=== PATIENT | male | born 1990 | race Caucasian/White ===

== ENCOUNTER 2024-07-03 17:40 | Emergency (ER) | payer MEDICAID, SELFPAY ==
[2024-07-03 17:46] VITALS: PULSE 72
--- NOTE | 2024-07-03 17:51 | MHC.CARE ---
Pt seen by court [facility] co-response, Sera Broderick in the community. Pt has court appointed guardian Wendy Zenge [phone]. Pt is DDS involved. He was living with his sister but there are concerns about pt not being cared for. Pt is nonverbal and has seizure d/o, has not seen pcp or neurologist in over a year. Home meds recently filled after an extensive length of not being filled. Guardian is advocating for pt to be placed in [facility] respite home.
[2024-07-03 17:53] VITALS: BMI 17.8
--- NOTE | 2024-07-03 19:25 | ED_ITS ---
HPI - General Adult General Chief complaint: General Medical Stated complaint: medical eval Time Seen by Provider: 07/03/24 19:02 Source: patient, family (sister, Ariana) and RN notes reviewed Mode of arrival: EMS Limitations: other (The patient is nonverbal) History of Present Illness ED Provider: Mayur HPI narrative: 33-year-old male past medical history significant for cognitive delay, epilepsy on Depakote presents for evaluation of a wellness check. Per the patient's sister who is bedside, the patient has a court ordered caregiver due to requiring antipsychotic medications The caregiver is reported as Fanny Peace [phone] Apparently this individual was concerned about the patient's living situation and feels he was not being cared for well. Patient is nonverbal at baseline and unable to offer any complaints. EMS reports that the patient appears to be well cared for at home, all of his meds have been filled recently in his appointments have been well documented It is unclear what the specific complaints from the legal guardian are The patient has not had any fevers, chills, he is eating appropriately, he has not had any vomiting or diarrhea Related Data Allergies Allergy/AdvReac Type Severity Reaction Status Date / Time Unable to Assess Allergy Unverified 07/03/24 17:55 Review of Systems Constitutional: Constitutional: Denies body ache(s), Denies chills, Denies fever(s) and Denies headache(s) ENT: Denies vertigo, Denies dizziness and Denies headache(s) Cardiovascular: Cardiovascular: Denies chest pain and Denies dyspnea Respiratory: Respiratory: Denies dyspnea Gastrointestinal: Gastrointestinal: Denies nausea and Denies vomiting Integumentary/Breasts: Skin/Breast: Denies rash Neurologic: Denies vertigo, Denies dizziness and Denies headache(s) [facility] Social History Social History Advance Directives: No Advance Directives Information Provided: No Physical Exam ED Vital Signs: BMI result Body Mass Index 17.8 Const General: cooperative, healthy appearing, comfortable, no acute distress, well developed, alert, awake and Physically active HENSD Head: Yes normocephalic and Yes atraumatic Teeth and gingiva: poor dentition Eyes Alignment and Position: alignment normal and position normal Periorbital: periorbital findings normal Eyelids: Yes eyelids normal Conjunctivae: conjunctivae normal Sclerae: sclerae normal Pupils: Equal, round and reactive pupils present EOM: EOMs intact bilaterally Resp Effort & Inspection: normal respiratory effort, not labored and no nasal flaring Auscultation: clear to auscultation bilaterally GI Inspection: Yes normal to inspection, No distended and No incision Palpation (GI): Soft to palpation, not firm, nontender and no guarding Skin Other: No rashes Neuro Cranial nerves: Yes Equal, round and reactive pupils present Speech: Global aphasia present Extrem Other: Moving all extremities well Medical Decision Making Medical Decision Making MDM Narrative: 33-year-old male presents for evaluation of a wellness check. It is not quite clear what the concerns were by the patient's legal guardian. The patient appears quite well taking care of. His sister is bedside. The patient appears quite comfortable around his sister. He appears to be well groomed. Per EMS, there were no concerns the patient's living situation, all of his medications have been filled and his appointments are documented. I did attempt to discuss with Wendy peace at in there was no answer x3. The patient's vital signs are stable, there are no complaints from the family. I have no red flags but the patient's living situation and it does not sound as if EMS had any red flags either. At this time I do not feel it was appropriate to keep the patient in the ER against family's wishes. There are no reasons to believe the patient does not have a safe living situation and he will be discharged back home. Differential Diagnosis Differential Diagnoses: The differential diagnosis associated with the presentation includes Wellness visit Epilepsy Cognitive delay Mental disability Discharge Plan Discharge Clinical Impression: Adult wellness visit Patient Disposition: Home, Self-Care Instructions: Normal Exam (ED) Additional Instructions: Farhad appears happy and healthy Continue his medications as prescribed Return for new or worsening symptoms Print Language: Unknown
[2024-07-03 19:46] VITALS: BP 91/51; PULSE 60; RESP 14; TEMP 37.8; O2SAT 98
[2024-07-03 20:00] VITALS: BP 91/51; PULSE 60; RESP 14; TEMP 37.8; O2SAT 98
--- OUTSIDE RECORDS SUMMARY | 2024-07-03 20:23 | XMS_ITS | Encounter Summary ---
Author Organization [employer] Address [address] [place] [address] [address] [place] [id number] Care Team Providers Care Robot Designer Name Role Phone Melinda Moeller MD Primary Care Provide r Encounter Details Date Type Department Care Team (Late st Contact Info) Description 06/06/2022 Abstract [facility] [address] [place], [place] [phone] Melinda Moeller MD [address], [place] [phone] Social History Tobacco Use Types Packs/Day Years Used Date Smoking Tobacco: Never Assessed Sex and Gender Information Value Date Recorded Sex Assigned at Male 03/27/2022 10:20 AM EDT Legal Sex Male 10:20 AM EDT Gender Identity Male 03/27/2022 10:20 AM EDT Sexual Orientation Don't know 03/27/2022 10 :20 AM EDT documented as of this encounter Plan of Treatment Not on file documented as of this encounter Visit Diagnoses Not on filedocumented in this encounter Care Teams Robot Designer Relationship Specialty Start Date End Date Melinda Moeller MD [address], [place] [id number] PCP - General Family Medicine 02/06/18 05/23/23 documented as of this encounter
--- OUTSIDE RECORDS SUMMARY | 2024-07-03 20:23 | XMS_ITS | Clinical Summary ---
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 alecia fied surface antigen) 05/22/2013 TD (adult), 2 Lf tetanus tox oid, preservative free, adsorbed 01/24/2001,12/26/1993,01/26/1990,1988,01/26/1989,1988 Tdap 07/29/2010 Social History Tobacco Use Types Packs/Day Years Used Date Smoking Tobacco: Never Assessed Sex and Gender Information Value Date Recorded Sex Assigned at Male 03/27/2022 10:20 AM EDT Legal Sex Male 10:20 AM EDT Gender Identity Male 03/27/2022 10:20 AM EDT Sexual Orientation Don't know 03/27/2022 10 :20 AM EDT Last Filed Vital Signs Vital Sign Reading Time Taken Comments Blood Pressure - - Pulse 72 06/10/2019 12:01 AM EST Temperature - - Respiratory Rate - - Oxygen Saturation - - Inhaled Oxygen Concentration - - Weight 66.5 kg (146 lb 9.6 oz) 06/10/2019 12:01 AM EST Height - - Body Mass Index - - Plan of Treatment Health Maintenance Due Date Last Done Comments Depression Screening 1988 HIV Screening 1988 Lipid Panel 1988 SDOH Screening 1988 Alcohol/Substance Use Screening 2000 Tobacco Screening 2000 Family Planning (PISQ) 2003 Hepatitis C Screening 2006 Hepatitis B Vaccines (1 of 3 - 19+ 3-dose series) 2007 DTaP/Tdap/Td Vaccines (3 - Td or Tdap) 07/29/2020 07/29/2010, 01/24/2001, 12/26/1993, Additional history exists COVID-19 Vaccine (2023- season) 2024 Influenza Vaccine (#1) 2024 4, 05/22/2013, 02/28/2010 Zoster Vaccines (1 of 2) 2038 RSV Patients and Patients Aged 60 years or older (1 - 1-dose 75+ series) 2063 HIB Vaccines Aged Out No longer eligi ble based on patient's age to complete this topic HPV Vaccines Aged Out No longer eligi ble based on patient's age to complete this topic Hepatitis A Vaccines Aged Out No long er eligible based on patient's age to complete this topic IPV Vaccines Aged Out No longer eligi ble based on patient's age to complete this topic Meningococcal Vaccine Aged Out No dipak sascha eligible based on patient's age to complete this topic Pneumococcal Vaccine: Pediatrics (0 to 5 Years) and At-Risk Patients (6 to 49) Years) Aged Out No longer eligible based on patient's age to complete this topic RSV under 20 months Aged Out No longe r eligible based on patient's age to complete this topic Rotavirus Vaccines Aged Out No longer eligible based on patient's age to complete this topic Insurance [facility] C3
== END 2024-07-03 20:05 | disposition home or self-care (01) ==
PROVIDERS: Emergency Provider Emergency Medicine
DX: G31.84 Mild cognitive impairment of uncertain or unknown etiology (principal)
CPT/HCPCS: 99282; 99283

== ENCOUNTER 2024-08-08 15:45 | Outpatient (REF) | payer MEDICAID, SELFPAY ==
[2024-08-08 16:17] LABS: MANUAL DIFF FLAG NO
[2024-08-08 16:39] LABS: Basophils Percent Auto 0.4 % (0-2); Eosinophils Absolute Auto 0.5 X10*3/uL (0.0-0.4); Eosinophils Percent Auto 9.1 % (0-4); Hematocrit 39.5 % (42.0-52.0); Hemoglobin 13.6 g/dl (14.0-18.0); Imm Gran Abs Auto 0.01 X10*3/uL (0.00-0.03); Imm Gran Pct Auto 0.2 % (0.0-0.4); Lymphocytes Absolute Auto 1.5 X10*3/uL (1.2-4.9); Lymphocytes Percent Auto 30.8 % (20-40); Mean Corpuscular HGB Conc 34.4 g/dl (31.0-36.0); Mean Corpuscular Volume 87.2 fL (80.0-98.0); Monocytes Absolute Auto 0.3 X10*3/uL (0.1-1.2); Monocytes Percent Auto 6.9 % (2-11); Neutrophils Absolute Auto 2.6 x10*3/uL (2.0-8.3); Neutrophils Percent Auto 52.6 % (45-73); Platelet Count 151 X10*3/uL (160-400); Red Blood Count 4.53 X10*6/uL (4.60-5.80); Red Cell Distribution Width 12.3 % (11.0-16.0); White Blood Count 4.9 X10*3/uL (4.8-10.8)
--- OUTSIDE RECORDS SUMMARY | 2024-08-08 16:45 | XMS_ITS ---
Author Organization [facility] [employer] [facility] Address [address] [place] [id number] Care Team Providers Care Hydroponics Worker Name Role Phone Kirsten Dolan Primary Care Provider Smith Womack Unavailable [phone] Allergies No Known Allergies REASON FOR VISIT FINANCIAL INSTITUTION VICE PRESIDENT: Alicia de Lang syndrome, intellectual disability, seizure disorder, and behavior concerns Medications Medication SIG (Take, Route, Fr equency, Duration) Notes Start Date End Date Status Keppra 100 MG/ML 15 mL Orally twice a day Active Vitamin B6 100 MG 1 tablet Orally twic e daily for 90 days Active risperiDONE 1 MG 1 tablet Orally twice daily Active Social History Tobacco Use: Social History Observation Description Date Details (start date - stop date) Never Smoker NA - NA Tobacco Control (Standard) Question Answer Notes Tobacco use: Nonsmoker Problems Problem Type SNOMED Code ICD Code Onset Dates Problem Status W/U Status Risk Notes Problem Epilepsy (50713768) Epilepsy (G40.909) Active confirmed Problem Intellectual disability (321055465) Intellectual disability (F79) Active confirmed Problem Microcephaly (8772890073) Microcephaly (Q02) Active confirmed Problem Agitation (30185927) Agitation (R45.1) Active confirmed Vital Signs Height 64 in 07/11/2024 Weight 127 lbs 07/11/2024 BMI 21.8 kg/m2 07/11/2024 unable to get BP Encounters Encounter Location Date Provider Diagnosis [facility] [address] [place] [id number] 07/11/2024 Smith Feng Epilepsy G40.909 ; Intellectual disability F79 ; Microcephaly Q02 and Agitation R45.1 Assessments Encounter Date Diagnosis (ICD Code) Assessment Notes Treatment Notes Treatment Clinical Notes Section Notes 07/11/2024 Epilepsy (ICD-10 - G40.909) Based on review of records available today and information provided by the patient's family the patient has been relatively stable on Keppra. They do not recall any previous antiepileptic drug trials but we will try to obtain old records for further confirmation. In the meantime I think it is reasonable to continue the Keppra as prescribed. Patient also appears to be responding to pyridoxine with regard to any neuropsychiatric side effects. This can also be continued as prescribed. 07/11/2024 Intellectual disability (ICD-10 - F79) 07/11/2024 Microcephaly (ICD-10 - Q02) 07/11/2024 Agitation (ICD-10 - R45.1) Based on review of records the patient has been on risperidone for mood stabilization/agitat ion. I do wonder if the patient could tolerate a lower dosage though we decided today to hold off on any changes. This was for several reasons including incomplete chart availability today. I want an opportunity to get to know the patient better and review any available records that we are missing at the moment. I have also suggested that there might be a higher likelihood of success with discontinuation of the medication should we wait until we get a little bit closer to the spring time and out of the winter. With this in mind we are going to set up another visit for now in 6 weeks to reassess all of the above and to help determine next steps. Basic maintenance blood work however should be performed next time the patient sees his PCP. Appropriate orders were included in today's note. Plan Of Treatment Medication Medication Name Sig Start Date Stop Date Notes Vitamin B6 100 MG 1 tablet Orally twice daily for 90 days Treatment Notes Assessment Notes Epilepsy Based on review of r ecords available today and information provided by the patient's family the patient has been relatively stable on Keppra. They do not recall any previous antiepileptic drug trials but we will try to obtain old records for further confirmation. In the meantime I think it is reasonable to continue the Keppra as prescribed. Patient also appears to be responding to pyridoxine with regard to any neuropsychiatric side effects. This can also be continued as prescribed. Agitation Based on review of r ecords the patient has been on risperidone for mood stabilization/agitation. I do wonder if the patient could tolerate a lower dosage though we decided today to hold off on any changes. This was for several reasons including incomplete chart availability today. I want an opportunity to get to know the patient better and review any available records that we are missing at the moment. I have also suggested that there might be a higher likelihood of success with discontinuation of the medication should we wait until we get a little bit closer to the spring time and out of the winter. With this in mind we are going to set up another visit for now in 6 weeks to reassess all of the above and to help determine next steps. Basic maintenance blood work however should be performed next time the patient sees his PCP. Appropriate orders were included in today's note. Pending Test Test Name Order Date LIPID PANEL 07/11/2024 COMPREHENSIVE METABOLIC PANEL 07/11/2024 CBC (H/H, RBC, INDICES, WBC, PLT) 2024 HEMOGLOBIN A1c 07/11/2024 VITAMIN B12/FOLATE, SERUM PANEL 07/11/19 25 VITAMIN D,25-OH,TOTAL,IA 07/11/2024 LEVETIRACETAM, SERUM/PLASMA 07/11/2024 Next Appt Details Follow Up: 6 Weeks, televisi t ok, Reason: Provider Name:Smith rodriguez, 08/22/2024 11:20:00 AM, [address] [place] [address], [address], [phone], Progress Notes * Carlyle BAZZIOB:1990 ([age] yo M)Acc No.[id number]:07/11/2024 Progress Notes Patient:?Farhad BAZZI Provider:?Smith Feng M.D. :1990???Age:33 Y???Sex:Male Lupillo e:07/11/2024 Address:[address] [place] [address], [address], [place] [address] Pcp:Kirsten Dolan Subjective: * Chief Complaints: * ???FINANCIAL INSTITUTION VICE PRESIDENT: Alicia Painting synd girish, intellectual disability, seizure disorder, and behavior concerns * HPI: ???Reason for visit:? Patient is a 33-year-old gentleman with a history of Alicia de Zhong syndrome, intellectual disability, nonverbal, seizure disorder, agitation/irritability. Patient was previously seen by a neurologist closer to the patient's home who has since discontinued treatment. I was able to review the most recent 2 progress notes as part of today's consultation.? This included a visit in June 2023 and a previous visit in May 2022.? Patient's sister provides most of the history today. She confirms that the patient lives at home with family and also has additional support from intermediate school teacher.? Patient is not currently involved in a day program.? Review of records suggest relative stability with regard to patient's epilepsy.? Patient sister states that first diagnosed seizure was around age 12. The patient has had mostly absence seizure events and has had complete resolution of symptoms with Keppra.? Although not formally documented presumption is that the patient did have increasing agitation and irritability related to Keppra at 1 time provoking initiation of vitamin B6 which the patient also continues.? It is unclear exactly when the patient was started on risperidone but again, according to available records, there has been relative improvements with regard to agitation and aggressiveness on this medication without any specific side effects noted.? Patient sister states that the patient has been taking the above medications as directed. * ROS:?Patient is nonverbal. Per sister additional neurologic psychiatric and systemic review of systems unremarkable. * Medical History:? * Surgical History:?Denies Pas t Surgical History * Hospitalization/Major Diagno stic Procedure:?Denies Past Hospitalization * Family History:?Father: dece ased 71 yrs.?Mother: alive 68 yrs.?3 brother(s) , 3 sister(s) - healthy. .? father-Alzheimer's mother- high cholestrol an asthma. * Social History:?Tobacco Use:?Tobacco Control (Standard)?Tobacco use:?Nonsmoker ???Drugs/Alcohol:?Drugs?Have you used drugs other than those for medical reasons in the past 12 months??No ?Caffeine?Intake:?none ?Do you smoke marijuana?: Denies. ?Do you drink alcohol?: No. * Medications:?TakingVitamin B 6 100 MG Tablet 1 tablet Orally twice daily risperiDONE 1 MG Tablet 1 tablet Orally twice daily Keppra 100 MG/ML Solution 15 mL Orally twice a day Medication List reviewed and reconciled with the patientTaking Vitamin B6 100 MG Tablet 1 tablet Orally twice daily Taking risperiDONE 1 MG Tablet 1 tablet Orally twice daily Taking Keppra 100 MG/ML Solution 15 mL Orally twice a day Medication List reviewed and reconciled with the patient * Allergies:?N.K.D.A.no[Allerg ies Verified] Objective: * Vitals:?Wt:127lbs, BMI:21.8I ndex, Ht: 64 in, Pain scale:01-10, Ht-cm: 162.56 cm, Wt-k.61 kg. unable to get BP. * Examination: ???Neurologic: ???Generally no acute distress.? Dysmorphic facial features present, short stature, microcephaly.? Pupils equal round reactive to light. Extraocular movements appeared intact though the patient could not fully cooperate with this part of the exam.? No facial asymmetry observed. Tongue and palate appeared midline. Patient was smiling frequently throughout the visit. Patient did move all 4 extremities including on command.? Appeared to have equal and symmetric strength.? Difficulty assessing tone as the patient did provide resistance especially in the upper extremities when applied during passive range of movement.? No observed abnormal involuntary movements. Patient appeared to respond to light touch throughout.? Gait and station notable for possible lower extremity length asymmetry and favoring of the left side. Patient did hold onto his sister with his left upper extremity.? Armswing perhaps mildly diminished but present on the right side.? On cardiac exam normal S1-S2, clear to auscultation. Assessment: * Assessment: 1.?Epilepsy - G40.909 (Prima ry)???2.?Intellectual disability - F79???3.?Microcephaly - Q02???4.?Agitation - R45.1??? Plan: * Treatment: 2.?Intellectual disability?LAB: LIPID PANEL ?LAB: COMPREHENSIVE METABOLIC PANEL ?LAB: CBC (H/H, RBC, INDICES, WBC, PLT) ?LAB: HEMOGLOBIN A1c ?LAB: VITAMIN B12/FOLATE, SERUM PANEL ?LAB: VITAMIN D,25-OH,TOTAL,IA ?LAB: LEVETIRACETAM, SERUM/PLASMA 3.?Microcephaly?LAB: LIPID PANEL ?LAB: COMPREHENSIVE METABOLIC PANEL ?LAB: CBC (H/H, RBC, INDICES, WBC, PLT) ?LAB: HEMOGLOBIN A1c ?LAB: VITAMIN B12/FOLATE, SERUM PANEL ?LAB: VITAMIN D,25-OH,TOTAL,IA ?LAB: LEVETIRACETAM, SERUM/PLASMA 4.?Agitation?LAB: LIPID PANEL ?LAB: COMPREHENSIVE METABOLIC PANEL ?LAB: CBC (H/H, RBC, INDICES, WBC, PLT) ?LAB: HEMOGLOBIN A1c ?LAB: VITAMIN B12/FOLATE, SERUM PANEL ?LAB: VITAMIN D,25-OH,TOTAL,IA ?LAB: LEVETIRACETAM, SERUM/PLASMA Notes: Based on review of records the patient has been on risperidone for mood stabilization/agitation. I do wonder if the patient could tolerate a lower dosage though we decided today to hold off on any changes. This was for several reasons including incomplete chart availability today. I want an opportunity to get to know the patient better and review any available records that we are missing at the moment. I have also suggested that there might be a higher likelihood of success with discontinuation of the medication should we wait until we get a little bit closer to the spring time and out of the winter. With this in mind we are going to set up another visit for now in 6 weeks to reassess all of the above and to help determine next steps. Basic maintenance blood work however should be performed next time the patient sees his PCP. Appropriate orders were included in today's note.?? * Procedure Codes:? * Follow Up:?6 Weeks, televisi t ok * * Sign off status: Completed true * Provider:?Smith Feng M.D. Date:? 07/11/[address]/Francisco/Ghazal on:?08/08/2024 04:45 PM EDT History and Physical Notes * HPI (History of Present Illness) Category Sub-Category Detail Notes Category Not es Reason for visit Patient is a 33-year-old gentleman with a history of [place] de Zhong syndrome, intellectual disability, nonverbal, seizure disorder, agitation/irritability. Patient was previously seen by a neurologist closer to the patient's home who has since discontinued treatment. I was able to review the most recent 2 progress notes as part of today's consultation. This included a visit in June 2023 and a previous visit in May 2022. Patient's sister provides most of the history today. She confirms that the patient lives at home with family and also has additional support from intermediate school teacher. Patient is not currently involved in a day program. Review of records suggest relative stability with regard to patient's epilepsy. Patient sister states that first diagnosed seizure was around age 12. The patient has had mostly absence seizure events and has had complete resolution of symptoms with Keppra. Although not formally documented presumption is that the patient did have increasing agitation and irritability related to Keppra at 1 time provoking initiation of vitamin B6 which the patient also continues. It is unclear exactly when the patient was started on risperidone but again, according to available records, there has been relative improvements with regard to agitation and aggressiveness on this medication without any specific side effects noted. Patient sister states that the patient has been taking the above medications as directed. Examination Category Sub-Category Detail Notes Category Not es Neurologic Generally no ac lit distress. Dysmorphic facial features present, short stature, microcephaly. Pupils equal round reactive to light. Extraocular movements appeared intact though the patient could not fully cooperate with this part of the exam. No facial asymmetry observed. Tongue and palate appeared midline. Patient was smiling frequently throughout the visit. Patient did move all 4 extremities including on command. Appeared to have equal and symmetric strength. Difficulty assessing tone as the patient did provide resistance especially in the upper extremities when applied during passive range of movement. No observed abnormal involuntary movements. Patient appeared to respond to light touch throughout. Gait and station notable for possible lower extremity length asymmetry and favoring of the left side. Patient did hold onto his sister with his left upper extremity. Armswing perhaps mildly diminished but present on the right side. On cardiac exam normal S1-S2, clear to auscultation.
--- OUTSIDE RECORDS SUMMARY | 2024-08-08 16:45 | XMS_ITS ---
Author Organization [facility] [facility] Address [address] [place] [address] Care Team Providers Care Rn Cardiac Rehab Name Role Phone Kirsten Dolan Primary Care Provider Smith Womack Unavailable [phone] REASON FOR VISIT New Pharmacy & re-send rx Medications Medication SIG (Take, Route, Fr equency, Duration) Notes Start Date End Date Status Keppra 100 MG/ML 15 mL Orally twice a day for 30 days Active risperiDONE 1 MG 1 tablet Orally twic e daily for 30 days Active Vitamin B6 100 MG 1 tablet Orally twic e daily for 90 days 07/13/2025 Active Encounters Encounter Location Date Provider [facility] [address] [address] 07/18/2024 Smith Feng Epilepsy G40.909 Assessments Encounter Date Diagnosis (ICD Code) Assessment Notes Treatment Notes Treatment Clinical Notes Section Notes 07/18/2024 Epilepsy (ICD-10 - G40.909) Plan Of Treatment Medication Medication Name Sig Start Date Stop Date Notes Keppra 100 MG/ML 15 mL Orally twice a day for 30 days risperiDONE 1 MG 1 tablet Orally twice daily for 30 days Vitamin B6 100 MG 1 tablet Orally twice daily for 90 days 07/13/2025 Next Appt Details Provider Name:Smith rodriguez, 08/22/2024 11:20:00 AM, [address] [place] [address], [place] [address], [place], [address], Progress Notes * Eliazar BAZZI:1990 ([age] yo M)Acc No.[id number]:07/18/2024 Patient:Farhad VERGARA :1990???Age:34 Y???Sex:Male Address:[address] [place] [address], [facility], [place], [place], [place] [address] * Refills? Refill Keppra Solution, 100 MG/ML, Orally, 900 ML, 15 mL, twice a day, 30 days, Refills=3 Refill risperiDONE Tablet, 1 MG, Orally, 60, 1 tablet, twice daily, 30 days, Refills=3 Refill Vitamin B6 Tablet, 100 MG, Orally, 180, 1 tablet, twice daily, 90 days, Refills=3 * true * Date:? Generated for Mehul way/Francisco/Kaceysmitting on:?08/08/2024 04:45 PM EDT
--- OUTSIDE RECORDS SUMMARY | 2024-08-08 16:45 | XMS_ITS | Encounter Summary ---
Author Organization [employer] Address [address] [facility] 7t [place] [address] Care Team Providers Care Developmental Specialist Name Role Phone Unavailable Primary Care Provider Unavailabl e Reason for Visit * Reason Comments Pre-visit Planning SDOH unable to reach LVM Encounter Details Date Type Department Care Team ([facility] st Contact Info) Description 07/25/2024 Patient Outreach [facility] [address] [place] [address] Kirsten Dolan MD [address] [place] [address] Pre-visit Planning (SDOH unable to reach LVM ) Social History Tobacco Use Types Packs/Day Years Used Date Smoking Tobacco: Never Assessed Sex and Gender Information Value Date Recorded Sex Assigned at Male 03/27/2022 10:20 AM EDT Legal Sex Male 10:20 AM EDT Gender Identity Male 03/27/2022 10:20 AM EDT Sexual Orientation Don't know 03/27/2022 10 :20 AM EDT documented as of this encounter Progress Notes * Izzy Rizo - 07/25/2024 10:00 AM EST MARCO ANTONIO Ybarra placed outbound call to patient to complete pre-visit planning. No answer at this time. Patient name and were not confirmed. CC left voicemail requesting return call. Direct contactinformation provided. documented in this encounter Plan of Treatment Not on file documented as of this encounter Visit Diagnoses Not on filedocumented in this encounter
--- OUTSIDE RECORDS SUMMARY | 2024-08-08 16:45 | XMS_ITS | Encounter Summary ---
Author Organization [employer] Address [address] [facility] 7t [place] [address] Care Team Providers Care Chief Engineering Division Name Role Phone Kirsten Dolan MD Primary Care Provider [phone] Reason for Visit * Reason Comments New Patient Encounter Details Date Type Department Care Team (Late st Contact Info) Description 08/01/2024 1:45 PM EST Office Visit [facility] [address] [place], [place] [phone] Kirsten Dolan MD [address] [place], [place] [phone] Congenital anomaly (Primary Dx); De Zhong syndrome; Seizure (CMS/HCC); Dietary counseling; Exercise counseling; Underweight; Total urinary incontinence Social History Tobacco Use Types Packs/Day Years Used Date Smoking Tobacco: Never Smokeless Tobacco: Never Tobacco Cessation:Counseling Given: Not Answered Alcohol Use Standard Drinks/Week Comments Never 0 (1 standard drink = 0.6 oz pur e alcohol) Depression Answer Date Recorded Patient Health Questionnaire-9 Score 0 08/01/2024 Patient Health Questionnaire-9 Score 0 08/01/2024 Last PHQ-9: Questionnaire Data Not on file 0 08/01/2024 Housing Stability Answer Date Recorded What is your housing situation today? I have nawaf castillo 08/01/[address] you li ve. Do you have problems with any of the following? None of the above 08/01/2024 Food Insecurity Answer Date Recorded Within the past 12 months, y ou worried that your food would run out before you got money to buy more: Never True 08/01/2024 Within the past 12 months,th e food you bought just didn't last and you didn't have enough money to get more: Never True 11/2024 Transportation Answer Date Recorded In the past 12 months, has l ack of transportation kept you from medical appts, meetings, work or from getting things needed for daily living? No 08/01/2024 Utilities Answer Date Recorded In the past 12 months, has t he electric, gas, oil or water company threatened to shut off services in your home? No 08/01/2024 Depression Answer Date Recorded Patient Health Questionnaire-2 Score 0 08/01/2024 Internet Access Answer Date Recorded Internet Access Q1 Yes 08/01/2024 Internet Access Q2 Not on file 08/01/2024 Sex and Gender Information Value Date Recorded Sex Assigned at Male 03/27/2022 10:20 AM EDT Legal Sex Male 10:20 AM EDT Gender Identity Male 03/27/2022 10:20 AM EDT Sexual Orientation Don't know 03/27/2022 10 :20 AM EDT documented as of this encounter Last Filed Vital Signs Vital Sign Reading Time Taken Comments Blood Pressure 99/67 08/01/2024 2:04 PM EST Pulse - - Temperature - - Respiratory Rate - - Oxygen Saturation - - Inhaled Oxygen Concentration - - Weight 47.2 kg (104 lb) 08/01/2024 2:04 PM EST Height 160 cm (5' 3 ) 08/01/2024 2:04 PM EST Body Mass Index 18.42 08/01/2024 2:04 PM EST documented in this encounter Progress Notes * Kirsten Dolan MD - 08/01/2024 1:45 PM EST SUBJECTIVE: Farhad Poe is a 34 y.o. year old male who presents for new/transfer patient. Denies recent illness,ER visit, or hospitalization. Acute Concerns: Blanco Llamas comes to clinic today with his sister Ariana and two workers from his [employer] house, Ashley (RN) and Lucia (staff). The S house in on [facility] in [place]. He moved to this S house one week ago. No acute complaints. 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 Uses briefs, size medium for incontinence, tries to use toilet sometimes. Seizures Last two years ago Sees Dr. Feng in [place], [place] Takes Keppra for seizure prophylaxis Patient Active Problem List Diagnosis Abnormal gait Congenital anomaly De Zhong syndrome Intellectual disability Seizure (CMS/HCC) Total urinary incontinence History reviewed. No pertinent surgical history. No family history on file. Social History Social History Narrative Not on file Review of Systems Constitutional: Negative. HENT: Negative. Respiratory: Negative. Cardiovascular: Negative. OBJECTIVE: Vitals: 08/01/24 1404 BP: 99/67 BP Location: Right arm Patient Position: Sitting BP Cuff Size: Adult Weight: 104 lb (47.2 kg) Height: 5' 3 (1.6 m) Physical Exam Vitals and nursing note reviewed. Constitutional: General: He is not in acute distress. Appearance: He is not ill-appearing. HENT: Head: Atraumatic. Nose: Nose normal. Mouth/Throat: Mouth: Mucous membranes are moist. Pharynx: Oropharynx is clear. Cardiovascular: Rate and Rhythm: Normal rate and regular rhythm. Pulses: Normal pulses. Heart sounds: Normal heart sounds. Pulmonary: Effort: Pulmonary effort is normal. Breath sounds: Normal breath sounds. Genitourinary: Comments: Erythematous papules on scrotum with discharge, present x week per [employer] worker Musculoskeletal: General: Deformity present. Cervical back: Normal range of motion and neck supple. Comments: With contractures of upper extremities Walks with walker or assistance Skin: General: Skin is warm and dry. Capillary Refill: Capillary refill takes less than 2 seconds. Neurological: General: No focal deficit present. Mental Status: He is alert. Mental status is at baseline. ASSESSMENT/PLAN Problem List Items Addressed This Visit Congenital anomaly - Primary De Zhong syndrome Seizure (CMS/HCC) Relevant Orders TSH W/Reflex to FT4 CBC auto differential Comprehensive Metabolic Panel Levetiracetam RPR (Monitor) with Reflex to Titer Total urinary incontinence Overview Due to congenital disorder Current Assessment & Plan Needs medium briefs 8 daily Other Visit Diagnoses Dietary counseling Exercise counseling Underweight Follow Up: 4-6 months or sooner prn No Known Allergies Current Outpatient Medications: risperiDONE (RisperDAL) 1 MG tablet, Take 1 tablet by mouth 2 times daily., Disp: , Rfl: acetaminophen (Tylenol 8 Hour) 650 MG ER tablet, Take 1 tablet (650 mg) by mouth every 6 (six) hours if needed for mild pain. Do not crush, chew, or split., Disp: 60 tablet, Rfl: 3 Sinhala Translation: Patient is bilingual and declines translation services documented in this encounter Miscellaneous Notes * Assessment & Plan Note - Kirsten Dolan MD - 08/06/2024 10:31 AM EDT Associated Problem(s): Total urinary incontinence Needs medium briefs 8 daily documented in this encounter Plan of Treatment Pending Results Name Type Priority Associated Diagnoses Date /Time TSH W/Reflex to FT4 Lab Routine Seizure ([facility]) 08/01/2024 Comprehensive Metabolic Panel Lab Routine Seizure ([facility]) 08/01/2024 Levetiracetam Lab Routine Seizure ([facility]) 08/01/2024 RPR (Monitor) with Reflex to??Titer Lab Routi ne Seizure ([facility]) 08/01/2024 Scheduled Orders Name Type Priority Associated Diagnoses Orde r Schedule TSH W/Reflex to FT4 Lab Routine Seizure ([facility]) Expected: 08/01/2024 (Approximate), Expires: 08/01/2025 Comprehensive Metabolic Panel Lab Routine Seizure ([facility]) Expected: 08/01/2024 (Approximate), Expires: 08/01/2025 Levetiracetam Lab Routine Seizure ([facility]) Expected: 08/01/2024 (Approximate), Expires: 08/01/2025 RPR (Monitor) with Reflex to??Titer Lab Routine Seizure ([facility]) Expected: 08/01/2024, Expires: 08/01/2025 documented as of this encounter Procedures Procedure Name Priority Date/Time Associated Diagnosis Comments CBC WITH AUTO DIFFERENTIAL Routine 08/08/2024 4:15 PM EDT Seizure ([facility]) documented in this encounter Results * (ABNORMAL) CBC auto differential (08/08/2024 4:15 PM EDT) White Blood Count 4.9 4.8 - 10.8 X10*3/uL [facility] Red Blood Count 4.53(L) 4.60 - 5.80 X10*6/uL [facility] Hemoglobin 13.6(L) 14.0 - 18.0 g/dl [facility] Hematocrit 39.5(L) 42.0 - 52.0 % [facility] Mean Corpuscular Volume 87.2 80.0 - 98.0 fL [facility] Mean Corpuscular Hemoglobin 30.0 27.0 - 33.0 pg [facility] Mean Corpuscular HGB Conc 34.4 31.0 - 36.0 g/dl [facility] Red Cell Distribution Width 12.3 11.0 - 16.0 % [facility] Platelet Count 151(L) 160 - 400 X10*3/uL [facility] Mean Platelet Volume 9.0(L) 9.4 - 12.4 fL [facility] Neutrophils Percent Auto 52.6 45 - 73 % [facility] Imm Gran Pct Auto 0.2 0.0 - 0.4 % [facility] Lymphocytes Percent Auto 30.8 20 - 40 % [facility] Monocytes Percent Auto 6.9 2 - 11 % [facility] Eosinophils Percent Auto 9.1(H) 0 - 4 % [facility] Basophils Percent Auto 0.4 0 - 2 % [facility] NRBC Pct Auto 0.0 0.0 - 0.2 /100WBC [facility] Neutrophils Absolute Auto 2.6 2.0 - 8.3 x10*3/uL [facility] Imm Gran Abs Auto 0.01 0.00 - 0.03 X10*3/uL [facility] Lymphocytes Absolute Auto 1.5 1.2 - 4.9 X10*3/uL [facility] Monocytes Absolute Auto 0.3 0.1 - 1.2 X10*3/uL [facility] Eosinophils Absolute Auto 0.5(H) 0.0 - 0.4 X10*3/uL [facility] Basophils Absolute Auto 0.0 0.0 - 0.2 X10*3/uL [facility] NRBC Abs Auto 0.000 0.0 - 0.012 X10*3/uL [facility] Blood Venous blood specimen / Unknown 08/08/2024 4:15 PM EDT 08/08/2024 4:16 PM EDT us Kirsten Dolan MD LAB BLOOD ORDERABLES Final Res ult [facility] [address] [place] [phone] documented in this encounter Visit Diagnoses Diagnosis Congenital anomaly- Primary Unspecified congenital anomaly De Zhong syndrome Other specified congenital anomalies, so described Seizure (CMS/HCC) Other convulsions Dietary counseling Dietary surveillance and counseling Exercise counseling Underweight Total urinary incontinence documented in this encounter Additional Health Concerns Assessment Noted Time PHQ-9 Depression Total Score: 0 08/02/19 25 2:56 PM EST documented as of this encounter Care Teams Chief Engineering Division Relationship Specialty Start Date End Date Kirsten Dolan MD [address] [place] [address] PCP - General Family Medicine 08/01/24 documented as of this encounter
--- OUTSIDE RECORDS SUMMARY | 2024-08-08 16:45 | XMS_ITS | Encounter Summary ---
Author Organization [employer] [facility] Address [address] [place] [address] 7t [place] [address] Care Team Providers Care Door Tender Name Role Phone Melinda Moeller MD Primary Care Provide r Kirsten Dolan MD Primary Care Provider [phone] Encounter Details Date Type Department Care Team (Late st Contact Info) Description 06/06/2022 [facility] Information Management [address] [place] [address] Melinda Moeller MD [address] [place], [place] [phone] Social History Tobacco Use Types Packs/Day Years [...] on filedocumented in this encounter Care Teams Door Tender Relationship Specialty Start Date End Date Melinda Moeller MD [address] [place] [address] [phone] PCP - General Family Medicine 02/06/18 05/23/23 Kirsten Dolan MD [address] [place] [address] [phone] PCP - General Family Medicine 08/01/24 documented as of this encounter
--- OUTSIDE RECORDS SUMMARY | 2024-08-08 16:45 | XMS_ITS ---
Author Organization [facility] [employer], [facility] Address [address] [place] [address] Care Team Providers Care Honing Machine Try Out Setter Name Role Phone Kirsten Dolan Primary Care Provider Smith Womack Unavailable [phone] REASON FOR VISIT Update Demographics - Personal Info Encounters Encounter Location Date Provider Diagnosis [facility], [address] [address] 07/25/2024 Smith Feng Plan Of Treatment Next Appt Details Provider Name:Smith rodriguez, 08/22/2024 11:20:00 AM, [address] [place] [address], [place], [address], Progress Notes * Carlyle BAZZIOB:1990 ([age] yo M)Acc No.[id number]:07/25/2024 Patient:?Farhad BAZZI :1990???Age:34 Y???Sex:Male Address:[address] [place] [address], [address] [place] [address], [place], [address] * true * Date:? Generated for Marioni seamus/Francisco/eTransmitting on:?08/08/2024 04:45 PM EDT
--- OUTSIDE RECORDS SUMMARY | 2024-08-08 16:45 | XMS_ITS | Encounter Summary ---
Author Organization [employer] Address [address] [facility] 7t [place] [address] Care Team Providers Care Phys Assistant Name Role Phone Kirsten Dolan MD Primary Care Provider [phone] Reason for Visit * Reason Onset Date Comments Call Back Request 08/04/2024 Encounter Details Date Type Department Care Team ([facility] st Contact Info) Description 08/04/2024 Telephone [facility] [address] [place], [place] [phone] Kirsten Dolan MD [address] [place], [place] [phone] Call Back Request (/) Social History Tobacco Use Types Packs/Day Years Used Date Smoking Tobacco: Never Smokeless Tobacco: Never Alcohol Use Standard Drinks/Week Comments Never 0 [...] AM EDT documented as of this encounter Miscellaneous Notes * Telephone Encounter - Johanna Mann RN - 08/07/2024 1:05 PM EDT Fax number is [phone] * Telephone Encounter - Teresa Ring RN - 08/06/2024 9:11 AM EDT Telephone call to pt's retirement at [phone], Yessenia was not available to speak. Spoke to Pamela who confirmed pt's name/. Pamela asked for lab orders to be faxed to the retirement at [phone]. She also stated that Dr Ceron on 08/01/24 signed the pt's home med list with an order for Tylenol 650mg Q6 hours PRN for pain or fever >100.5 however they do not have an active script on file. Pamela asking for Dr Ceron to send a script for tylenol to [facility] in [place] so that they have it available in the retirement. Advised her message would be sent, Pamela verbalized understanding.Faxed labs to [facility] in [place] and retirement, confirmations received. * Telephone Encounter - Lizett Jacobson - 08/06/2024 8:48 AM EDT Tc from Ashley requesting a call back regarding prior message. * Telephone Encounter - Nedra Walters RN - 08/05/2024 4:18 PM EDT Telephone call x1 pm to Velma ,at the pt's retirement at , regarding the previous message as Yessenia was not there . Velma requested a return call be placed tomorrow when Mariana will bethere . * Telephone Encounter - Lizett Jacobson - 08/04/2024 2:16 PM EDT Tc from Yessenia requesting if lab work order can be send to [facility] [address] [place] [address] stating its much easier, an also requesting a call back regarding medication methylphenidate 50 MG. [phone] documented in this encounter Plan of Treatment Not on file documented as of this encounter Visit Diagnoses Not on filedocumented in this encounter Additional Health Concerns Assessment Noted Time PHQ-9 Depression Total Score: 0 08/02/19 2:56 PM EST documented as of this encounter Care Teams Phys Assistant Relationship Specialty Start Date End Date Kirsten Dolan MD [address] [place] [phone] PCP - General Family Medicine 08/01/24 documented as of this encounter
--- OUTSIDE RECORDS SUMMARY | 2024-08-08 16:45 | XMS_ITS | Patient Health Record ---
Author Organization [facility] Address [address] [place] [address] Care Team Providers Care Battery Service Technician Name Role Phone Kirsten Dolan Primary Care Provider Smith Womack Unavailable [phone] Allergies No Known Allergies Reason For Referral No Information Medications Medication SIG (Take, Route, Fr equency, Duration) Notes Start Date End Date Status Keppra 100 MG/ML 15 mL Orally twice a day for 30 days Active risperiDONE 1 MG 1 tablet Orally twic e daily for 30 days Active Vitamin B6 100 MG 1 tablet Orally twic e daily for 90 days 07/13/2025 Active Social History Tobacco Use: Social History Observation Description Date Details (start date - stop date) Never Smoker NA - NA Tobacco Control (Standard) Question Answer Notes Tobacco use: Nonsmoker Problems Problem Type SNOMED Code ICD Code Onset Dates Problem Status W/U Status Risk Notes Problem Microcephaly (4703601992) Microcephaly (Q02) Active confirmed Problem Epilepsy (00780711) Epilepsy (G40.909) Active confirmed Problem Agitation (19781372) Agitation (R45.1) Active confirmed Problem Intellectual disability (608023243) Intellectual disability (F79) Active confirmed Vital Signs Height 64 in 07/11/2024 unable to get B P Weight 127 lbs 07/11/2024 unable to get B P BMI 21.8 kg/m2 07/11/2024 unable to get B P Encounters Encounter Location Date Provider Diagnosis [facility] [address] [address] 07/11/2024 Smith Feng Epilepsy G40.909 ; Intellectual disability F79 ; Microcephaly Q02 and Agitation R45.[address] [address] 07/18/2024 Smith Feng Epilepsy G40.[address] [address] 07/25/2024 Smith Feng Assessments Encounter Date Diagnosis (ICD Code) Assessment [...] prescribed. 07/11/2024 Intellectual disability (ICD-10 - F79) 07/18/2024 Epilepsy (ICD-10 - G40.909) 07/11/2024 Microcephaly (ICD-10 - Q02) 07/11/2024 Agitation [...] included in today's note. Plan Of Treatment Pending Test Test Name Order Date LIPID PANEL 07/11/2024 COMPREHENSIVE METABOLIC PANEL 07/11/2024 CBC (H/H, RBC, INDICES, WBC, PLT) 2024 HEMOGLOBIN A1c 07/11/2024 VITAMIN B12/FOLATE, SERUM PANEL 07/11/19 25 VITAMIN D,25-OH,TOTAL,IA 07/11/2024 LEVETIRACETAM, SERUM/PLASMA 07/11/2024 Next Appt Details Provider Name:Smith Wright jennifer, 08/22/2024 11:20:00 AM, [address] [place] [address], [place] [address], [place], [address], Insurance Providers Payer Name Payer Address Payer Phone Subscriber Number Group Number Insured Name Patient Relationship to Insured Coverage Start Date Coverage End Date [facility] [address] [place] [address] [id number] Farhad Poe Self - patient is the insured Medical (General) History Medical History History ICD Code seizures
--- OUTSIDE RECORDS SUMMARY | 2024-08-08 16:45 | XMS_ITS | Encounter Summary ---
Author Organization [employer] Address [address] [facility] 7t [place] [address] Care Team Providers Care Prevocational/Rehabilitation Counselor Name Role Phone Kirsten Dolan MD Primary Care Provider [phone] Encounter Details Date Type Department Care Team (Latest Contact Info) Description 08/01/2024 Travel Social History Tobacco Use Types Packs/Day Years [...] documented as of this encounter Care Teams Prevocational/Rehabilitation Counselor Relationship Specialty Start Date End Date Kirsten Dolan MD [address] [place] [address] PCP - General Family Medicine 08/01/24 documented as of this encounter
--- OUTSIDE RECORDS SUMMARY | 2024-08-08 16:46 | XMS_ITS | Clinical Summary ---
Author Organization [employer] [facility] Address [address] [facility] [address] [place] [address] Care Team Providers Care Dispatcher Refinery Name Role Phone Kirsten Dolan MD Primary Care Provider [phone] Allergies No known active allergies Medications risperiDONE (RisperDAL) 1 MG tablet Take 1 tablet by mouth 2 times daily. 5 Active acetaminophen (Tylenol 8 Hour) 650 MG ER tablet Take 1 tablet (650 mg) by mouth every 6 (six) hours if needed for mild pain. Do not crush, chew, or split. 60 tablet 3 5 025 Active acetaminophen (Tylenol 8 Hour) 650 MG ER tablet Take 1 tablet (650 mg) by mouth every 6 (six) hours if needed for mild pain. Do not crush, chew, or split. 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 Abnormal gait 12/13/2011 Intellectual disability 12/13/2011 Seizure 12/13/2011 Encounters Date Type Department Care Team Description 08/08/2024 Population Health Risk Score [facility] (C3) Department [address] [facility] [address] [place] [phone] Provider, Population Health Generic 08/06/2024 Orders Only [facility] [address] [place] [address] Kirsten Dolan MD 08/04/2024 Telephone [facility] [address] [place], [place] [phone] Kirsten Dolan MD Call Back Request (/) 08/01/2024 1:45 PM EST Office Visit [facility] [address] [place] [address] Kirsten Dolan MD Congenital anomaly (Primary Dx); De Zhong syndrome; Seizure (CMS/HCC); Dietary counseling; Exercise counseling; Underweight; Total urinary incontinence 08/01/2024 Travel 07/25/2024 Patient Outreach [facility] [address] [place], [place] [phone] Kirsten Dolan MD Pre-visit Planning ([facility] unable to reach [facility] ) 07/07/2024 Telephone [facility] [address] [place], [place] [phone] Wade Antoine MD Appointment Request from Last 3 Months Immunizations Name Administration Dates Next Due Influenza, [...] the past 12 months, has t he [employer], gas, oil or water company threatened to [...] Pressure 99/67 08/01/2024 2:04 PM EST Pulse 72 06/10/2019 12:01 AM EST Temperature - - Respiratory Rate - - Oxygen Saturation - - Inhaled Oxygen Concentration - - Weight 47.2 kg (104 lb) 08/01/2024 2:04 PM EST Height 160 cm (5' 3 ) 08/01/2024 2:04 PM EST Body Mass Index 18.42 08/01/2024 2:04 PM EST Plan of Treatment Health Maintenance Due Date Last Done Comments HIV Screening 1988 Lipid Panel 1988 Alcohol/Substance Use Screening 2000 Family Planning (PISQ) 2003 Hepatitis C Screening 2006 Hepatitis B Vaccines (1 of 3 - 19+ 3-dose series) 2007 DTaP/Tdap/Td Vaccines (3 - Td or Tdap) 07/29/2020 07/29/2010, 01/24/2001, 12/26/1993, Additional history exists COVID-19 Vaccine ( season) 2024 Influenza Vaccine (#1) 2024 4, 05/22/2013, 02/28/2010 Depression Screening 08/01/2025 08/01/2024, 08/02/19 25 SDOH Screening 08/01/2025 08/01/2024 Tobacco Screening 08/06/2025 08/06/2024 Zoster Vaccines (1 of 2) 2038 RSV [...] on patient's age to complete this topic Procedures Procedure Name Priority Date/Time Associated Diagnosis Comments CBC WITH AUTO DIFFERENTIAL Routine 08/08/2024 4:15 PM EDT Seizure (CMS/HCC) from Last 3 Months Results * (ABNORMAL) CBC auto differential (08/08/2024 4:15 PM EDT) White Blood Count 4.9 4.8 - 10.8 X10*3/uL [facility] Red Blood Count 4.53(L) 4.60 - 5.80 X10*6/uL [facility] Hemoglobin 13.6(L) 14.0 - 18.0 g/dl [facility] Hematocrit 39.5(L) 42.0 - 52.0 % [facility] Mean Corpuscular Volume 87.2 80.0 - 98.0 fL [facility] Mean Corpuscular Hemoglobin 30.0 27.0 - 33.0 pg [facility] Mean Corpuscular HGB Conc 34.4 31.0 - 36.0 g/dl [facility] Red Cell Distribution Width 12.3 11.0 - 16.0 % [facility] Platelet Count 151(L) 160 - 400 X10*3/uL [facility] Mean Platelet Volume 9.0(L) 9.4 - 12.4 fL [facility] Neutrophils Percent Auto 52.6 45 - 73 % [facility] Imm Gran Pct Auto 0.2 0.0 - 0.4 % [facility] Lymphocytes Percent Auto 30.8 20 - 40 % [facility] Monocytes Percent Auto 6.9 2 - 11 % [facility] Eosinophils Percent Auto 9.1(H) 0 - 4 % [facility] Basophils Percent Auto 0.4 0 - 2 % [facility] NRBC Pct Auto 0.0 0.0 - 0.2 /100WBC [facility] Neutrophils Absolute Auto 2.6 2.0 - 8.3 x10*3/uL [facility] Imm Gran Abs Auto 0.01 0.00 - 0.03 X10*3/uL [facility] Lymphocytes Absolute Auto 1.5 1.2 - 4.9 X10*3/uL [facility] Monocytes Absolute Auto 0.3 0.1 - 1.2 X10*3/uL [facility] Eosinophils Absolute Auto 0.5(H) 0.0 - 0.4 X10*3/uL [facility] Basophils Absolute Auto 0.0 0.0 - 0.2 X10*3/uL [facility] NRBC Abs Auto 0.000 0.0 - 0.012 X10*3/uL [facility] Blood Venous blood specimen / Unknown 08/08/2024 4:15 PM EDT 08/08/2024 4:16 PM EDT us Kirsten Dolan MD LAB BLOOD ORDERABLES Final Res ult [facility] [address] [place] [address] [phone] from Last 3 Months Insurance [facility] C3 Care Teams Dispatcher Refinery Relationship Specialty Start Date End Date Kirsten Dolan MD [address] [place] [phone] PCP - General Family Medicine 08/01/24
--- OUTSIDE RECORDS SUMMARY | 2024-08-08 16:46 | XMS_ITS | Encounter Summary ---
Author Organization [employer] Address [address] [facility] [address] [place] [address] Care Team Providers Care Word Processing Machine Operator Name Role Phone Kirsten Dolan MD Primary Care Provider [phone] Encounter Details Date Type Department Care Team (Late st Contact Info) Description 08/06/2024 Orders Only [facility] [address] [place], [place] [phone] Kirsten Dolan MD [address] [place], [place] [phone] Social History Tobacco Use Types Packs/Day Years [...] documented as of this encounter Care Teams Word Processing Machine Operator Relationship Specialty Start Date End Date Kirsten Dolan MD [address] [place] [phone] PCP - General Family Medicine 08/01/24 documented as of this encounter
--- OUTSIDE RECORDS SUMMARY | 2024-08-08 16:46 | XMS_ITS | Encounter Summary ---
Author Organization [employer] Address [address] [facility] [address] [place] [address] Care Team Providers Care Event Staff Name Role Phone Kirsten Dolan MD Primary Care Provider Encounter Details Date Type Department Care Team ([facility] st Contact Info) Description 08/08/20[address] Score [facility] (C3) Department [address] [facility] [address] [place] [phone] Provider, Population Health Generic Social History Tobacco Use Types Packs/Day Years [...] documented as of this encounter Care Teams Event Staff Relationship Specialty Start Date End Date Kirsten Dolan MD [address] [place] [phone] PCP - General Family Medicine 08/01/24 documented as of this encounter
[2024-08-08 17:38] LABS: Alanine Aminotransferase 17 U/L (0-40); Alkaline Phosphatase 109 U/L (39-117); Anion Gap 13 (12-20); Aspartate Amino Transferase 17 U/L (5-37); Bilirubin Total 0.5 mg/dL (0.0-1.0); Blood Urea Nitrogen 12 mg/dL (9-16); Calcium 9.3 mg/dL (8.4-10.2); Carbon Dioxide 25 mmol/L (22-29); Chloride 105 mmol/L (96-108); Estimated Glomerular Filt Rate > 60; Glucose Random 106 mg/dL (60-115); Potassium 4.6 mmol/L (3.3-5.1); Sodium 138 mmol/L (135-145); TSH reflex Free T4 1.47 uIU/mL (0.32-4.0); Total Protein 7.5 g/dL (6.5-8.0)
[2024-08-10 14:33] LABS: RPR Rapid Plasma Reagin NON-REACTIVE (NON-REACTIVE)
[2024-08-12 22:18] LABS: Levetiracetam Keppra 44.3 mcg/mL (6.0-46.0)
== END 2024-08-08 15:46 | disposition home or self-care (01) ==
LOC: HO.LAB 15:45
PROVIDERS: PCP General Practice; Visit Provider General Practice
DX: R56.9 Unspecified convulsions (principal)
CPT/HCPCS: 36415; 80053; 80177; 84443; 85025; 86592